=== PATIENT | female | born 1990 | race American Indian/Alaskan Native ===

== ENCOUNTER 2018-05-28 03:56 | Emergency (ER) | payer SELFPAY ==
[2018-05-28 04:17] VITALS: BP 129/79
[2018-05-28] MEDS ORDERED: TYLENOL PO ONE (06:06)
[2018-05-28] MEDS ORDERED: FLEXERIL PO ONE (06:07)
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
== END 2018-05-28 06:20 | disposition home or self-care (01) ==
LOC: ED 03:56
DX: S39.012A Strain of muscle, fascia and tendon of lower back, initial encounter (principal); S29.012A Strain of muscle and tendon of back wall of thorax, initial encounter; R51 Headache; F12.10 Cannabis abuse, uncomplicated; V49.49XA Driver injured in collision with other motor vehicles in traffic accident, initial encounter; Y93.89 Activity, other specified; Y92.89 Other specified places as the place of occurrence of the external cause; Y99.8 Other external cause status
CPT/HCPCS: 99282